=== PATIENT | male | born 1980 | race African-American/Black ===

== ENCOUNTER 2022-05-04 07:51 | Outpatient (REF) | payer OTHER, SELFPAY ==
--- NOTE | ~2022-05-04 | XR_ITS ---
EXAMINATION: XR SHOULDER, LEFT CLINICAL INFORMATION: Pain COMPARISON: None TECHNIQUE: 3 view of the left shoulder. FINDINGS: There is no acute fracture or subluxation. The articular surfaces appear smooth. There is no abnormal soft tissue calcification. There is no proliferative changes associated with the tip of the acromion or the acromioclavicular joint. No cystic or erosive changes. The acromiohumeral interval appears maintained. No suspicious abnormality in the visualized portion of the chest. There is a device superimposing over the left upper arm. XR/XR shoulder LT min 2V IMPRESSION: No etiology for pain demonstrated
== END 2022-05-04 07:52 | disposition home or self-care (01) ==
LOC: HO.HOSX 07:51
PROVIDERS: Visit Provider Physician Assistant
DX: M75.102 Unspecified rotator cuff tear or rupture of left shoulder, not specified as traumatic (principal)
CPT/HCPCS: 73030

== ENCOUNTER 2022-06-05 13:24 | Outpatient (REF) | payer OTHER, SELFPAY ==
[2022-06-05] MEDS: iohexoL 350 MG/ML 100 ML INFUS..BTL IV (13:39)
== END 2022-06-05 13:25 | disposition home or self-care (01) ==
LOC: HO.XRAY 13:24
PROVIDERS: Visit Provider Physician Assistant
DX: M75.102 Unspecified rotator cuff tear or rupture of left shoulder, not specified as traumatic (principal)
CPT/HCPCS: Q9967

== ENCOUNTER → 2022-06-15 10:55 | Outpatient (BNVA) | payer OTHER, SELFPAY | PROVIDERS: PCP Physician Assistant; Visit Provider Physician Assistant | DX: M75.102 Unspecified rotator cuff tear or rupture of left shoulder, not specified as traumatic (principal); M95.8 Other specified acquired deformities of musculoskeletal system; S43.439A Superior glenoid labrum lesion of unspecified shoulder, initial encounter | CPT/HCPCS: 99212 ==

== ENCOUNTER → 2022-08-24 13:31 | Outpatient (BNVA) | payer OTHER, SELFPAY | PROVIDERS: PCP Physician Assistant; Visit Provider Physician Assistant | DX: S43.432D Superior glenoid labrum lesion of left shoulder, subsequent encounter (principal); M75.102 Unspecified rotator cuff tear or rupture of left shoulder, not specified as traumatic | CPT/HCPCS: 99212 ==

== ENCOUNTER → 2022-09-22 09:38 | Outpatient (BNVA) | payer OTHER, SELFPAY | PROVIDERS: PCP Physician Assistant; Visit Provider Orthopaedic Surgery | DX: M24.812 Other specific joint derangements of left shoulder, not elsewhere classified (principal) | CPT/HCPCS: 99212 ==